=== PATIENT | male | born 1965 | race Caucasian/White ===

== ENCOUNTER 2016-06-24 12:57 | Emergency (ER) | payer OTHER ==
[~2016-06-24] VITALS: Ht 170.2 cm; Wt 87.0 kg
[~2016-06-24 12:57] MED LIST: AMLODIPINE BES2.5 MG PO; ASPIR 8181 M1 PO; ASPIRIN E.C.81 M1 PO; ASPIRIN EC325 MG PO; BENICAR40 MG PO; BUSPAR15 MG PO; CIALIS20 MG PO; CLARITIN,ALAVAR10 MG PO; CLONAZEPAM0.5 MG PO; CO Q-1010 MG PO; DEPAKOTE500 MG PO; DOCUSATE SODIU100 MG PO; ESGIC 50-325-41 EAC1 PO; FAMOTIDINE20 MG PO; HABITROL,NICODE21 MG TD; HEPARIN SO5000 UNITS SC; LORAZEPAM0.5 MG PO; METOPROLOL TART25 MG PO; NIASPAN,SLO-NI500 MG PO; NICOTINE PATCH1 EAC2 TD; NORVASC5 MG PO; PRAVASTATIN SOD40 MG PO; TYLENOL REGULA325 MG PO; Thiamine,Vitamin B1 PO
[2016-06-24 16:02] VITALS: BP 174/114
== END 2016-06-24 16:02 | disposition home or self-care (01) ==
LOC: EME 12:57
DX: S42.211A Unspecified displaced fracture of surgical neck of right humerus, initial encounter for closed fracture (principal); S80.11XA Contusion of right lower leg, initial encounter; S50.312A Abrasion of left elbow, initial encounter; W18.30XA Fall on same level, unspecified, initial encounter; Y92.000 Kitchen of unspecified non-institutional (private) residence as the place of occurrence of the external cause; I69.351 Hemiplegia and hemiparesis following cerebral infarction affecting right dominant side; F17.200 Nicotine dependence, unspecified, uncomplicated
CPT/HCPCS: 73030; 73060; 99281; 99284

== ENCOUNTER 2016-10-15 14:50 | Emergency (ER) | payer OTHER ==
[~2016-10-15] VITALS: Ht 170.2 cm; Wt 76.6 kg
[2016-10-15 17:32] VITALS: BP 132/96
== END 2016-10-15 17:50 | disposition home or self-care (01) ==
LOC: EME 14:50
DX: S50.11XA Contusion of right forearm, initial encounter (principal); S00.93XA Contusion of unspecified part of head, initial encounter; W18.30XA Fall on same level, unspecified, initial encounter; I10 Essential (primary) hypertension; E78.5 Hyperlipidemia, unspecified; I69.354 Hemiplegia and hemiparesis following cerebral infarction affecting left non-dominant side; F17.200 Nicotine dependence, unspecified, uncomplicated
CPT/HCPCS: 70450; 73090; 99281; 99284

== ENCOUNTER 2017-08-25 17:25 | Inpatient (IN) | payer BC ==
[~2017-08-25] VITALS: Ht 170.2 cm; Wt 52.3 kg
[2017-08-25 19:17] LABS: HEMATOCRIT 36.9 % (38.0-50.0); HEMOGLOBIN 13.7 G/DL (12.5-16.6); MCH 34.1 PG (29.0-34.0); MCHC 37.1 G/DL (30.0-36.0); MCV 91.8 FL (86-99); NRBC (%) 0.2 /100 WBC (0-0); PLATELET COUNT 252 K/uL (156-360); RBC DIS.WIDTH-CV 14.2 % (11.8-14.6); RBC DIS.WIDTH-SD 47.7 % (39-53); RED BLOOD COUNT 4.02 M/uL (4.00-5.50); WHITE BLOOD COUNT 8.2 K/uL (4.1-10.2)
[2017-08-25 19:26] LABS: ALBUMIN 2.8 g/dL (3.2-4.8); CHLORIDE 88 mEq/L (99-109); POTASSIUM 3.7 mEq/L (3.7-5.4); SODIUM 132 mEq/L (136-147)
[2017-08-25 19:27] LABS: MAGNESIUM 1.3 mg/dL (1.3-2.7)
[2017-08-25 19:29] LABS: GLUCOSE 67 mg/dL (70-99); TOTAL PROTEIN 7.3 g/dL (6.4-8.3)
[2017-08-25 19:30] LABS: INTER. NORMALIZED RATIO 1.1
[2017-08-25 19:31] LABS: TOTAL BILIRUBIN 2.2 mg/dL (0.0-1.0)
[2017-08-25 19:32] LABS: ALKALINE PHOSPHATASE 266 IU/L (3-129); SERUM ETHYL ALCOHOL 110 mg/dL
[2017-08-25 19:33] LABS: CREATININE 0.8 mg/dL (0.6-1.3); GFR ESTIMATE (CALCULATED) > 59 mL/min/ (58.99-99999)
[2017-08-25 19:34] LABS: AST (GOT) 136 IU/L (2-34); UREA NITROGEN (BUN) 4 mg/dL (9-23)
[2017-08-25 19:36] LABS: ALT (GPT) 65 IU/L (3-49); LIPASE 32 U/L (1.0-51.0)
[2017-08-25 20:10] LABS: FOLIC ACID (FOLATE) 8.4 NG/ML (5.0-22.0)
[2017-08-25 20:49] LABS: THYROTROPIN (TSH) 3.6 MIU/L (0.4-5.5)
[2017-08-25 21:57] LABS: APPEARANCE CLEAR ((CLEAR)); BILIRUBIN NEGATIVE; BLOOD NEGATIVE; COLOR YELLOW ((YELLOW)); GLUCOSE (STRIP) NEGATIVE; KETONES 5; LEUKOCYTES NEGATIVE; NITRITE NEGATIVE; PROTEIN (STRIP) NEGATIVE; SPECIFIC GRAVITY 1.005 (1.000-1.030); UCUL ADDED? NO
[2017-08-25 22:16] LABS: AMPHETAMINE NEGATIVE (500 ng/mL); BARBITURATES NEGATIVE (200 ng/mL); BENZODIAZEPINES NEGATIVE (150 ng/mL); BUPRENORPHINE NEGATIVE (10 ng/mL); COCAINE NEGATIVE (150 ng/mL); METHADONE NEGATIVE (200 ng/mL); METHAMPHETAMINE NEGATIVE (500 ng/mL); OPIATES (MORPHINE) NEGATIVE (100 ng/mL); OXYCODONE NEGATIVE (100 ng/mL); PHENCYCLIDINE NEGATIVE (25 ng/mL); PROPOXYPHENE NEGATIVE (300 ng/mL); THC CANNABINOIDS PRESUMPTIVE POSITIVE (50 ng/mL); TRICYCLIC ANTIDEPRESSANTS NEGATIVE (300 ng/mL)
[2017-08-25] MEDS ORDERED: AMLODIPINE BESYL5 MG PO (23:25)
[2017-08-25] MEDS ORDERED: BUSPAR15 MG PO (23:26)
[2017-08-25] MEDS ORDERED: CARVEDILOL6.25 MG PO (23:26)
[2017-08-25] MEDS ORDERED: DIVALPROEX SOD500 M1 PO (23:27)
[2017-08-25] MEDS ORDERED: ESCITALOPRAM OX20 MG PO (23:28)
[2017-08-25] MEDS ORDERED: ASPIRIN325 MG PO (23:29)
[2017-08-25] MEDS ORDERED: CO Q-10200 MG PO (23:30)
[2017-08-25] MEDS ORDERED: MULTI-VITAMIN1 EAC4 PO (23:31)
[2017-08-26 02:13] VITALS: BP 115/82
[2017-08-26 06:10] LABS: HEMATOCRIT 27.7 % (38.0-50.0); MCH 33.4 PG (29.0-34.0); MCHC 36.1 G/DL (30.0-36.0); MCV 92.6 FL (86-99); PLATELET COUNT 199 K/uL (156-360); RBC DIS.WIDTH-CV 14.3 % (11.8-14.6); RBC DIS.WIDTH-SD 48.1 % (39-53); WHITE BLOOD COUNT 7.4 K/uL (4.1-10.2)
[2017-08-26 06:18] LABS: RED BLOOD COUNT 2.99 M/uL (4.00-5.50)
[2017-08-26 06:21] LABS: ALBUMIN 1.8 G/DL (3.2-4.8); ALKALINE PHOSPHATASE 166 IU/L (3-129); ALT (GPT) 33 IU/L (3-49); AST (GOT) 72 IU/L (2-34); CHLORIDE 94 MEQ/L (99-109); CREATININE 0.5 MG/DL (0.6-1.3); GFR ESTIMATE (CALCULATED) > 59 mL/min/ (58.99-99999); GLUCOSE 76 mg/dL (70-99); SODIUM 133 MEQ/L (136-147); TOTAL BILIRUBIN 1.8 MG/DL (0.0-1.0); TOTAL PROTEIN 4.6 G/DL (6.4-8.3); UREA NITROGEN (BUN) 3 mg/dL (9-23)
[2017-08-26 08:14] VITALS: BP 113/86
[2017-08-26 08:18] LABS: VALPROIC ACID (DEPAKOTE) < 10.0 MCG/ML (50-100)
[2017-08-26 13:24] LABS: BASOPHIL (%) 0.7 % (0-1); BASOPHIL COUNT 0.1 K/uL (0-0.1); EOSINOPHIL (%) 0.6 % (0-5); HEMATOCRIT 29.3 % (38.0-50.0); HEMOGLOBIN 10.3 G/DL (12.5-16.6); IMMATURE GRANULOCYTE (%) 0.1 % (0.0-0.7); LYMPHOCYTE (%) 43.7 % (15-42); LYMPHOCYTE COUNT 3.1 K/uL (1.0-2.8); MCH 33.6 PG (29.0-34.0); MCHC 35.2 G/DL (30.0-36.0); MCV 95.4 FL (86-99); MONOCYTE (%) 7.1 % (3-12); MONOCYTE COUNT 0.5 K/uL (0-0.8); NEUTROPHIL (%) 47.8 % (45-76); NEUTROPHIL COUNT 3.4 K/uL (1.8-6.4); NRBC (%) 0.4 /100 WBC (0-0); PLATELET COUNT 186 K/uL (156-360); RBC DIS.WIDTH-CV 14.8 % (11.8-14.6); RBC DIS.WIDTH-SD 51.4 % (39-53); RED BLOOD COUNT 3.07 M/uL (4.00-5.50); WHITE BLOOD COUNT 7.1 K/uL (4.1-10.2)
[2017-08-26 14:38] LABS: CHLORIDE 97 MEQ/L (99-109); CREATININE 0.5 MG/DL (0.6-1.3); GFR ESTIMATE (CALCULATED) > 59 mL/min/ (58.99-99999); POTASSIUM 2.9 MEQ/L (3.7-5.4); SODIUM 135 MEQ/L (136-147); UREA NITROGEN (BUN) 3 mg/dL (9-23)
[2017-08-26 14:39] LABS: GLUCOSE 131 mg/dL (70-99)
[2017-08-26 15:46] VITALS: BP 118/68
[2017-08-27] VITALS: BP 119/82
[2017-08-27 05:55] LABS: HEMATOCRIT 30.5 % (38.0-50.0); HEMOGLOBIN 10.7 G/DL (12.5-16.6); MCH 33.5 PG (29.0-34.0); MCHC 35.1 G/DL (30.0-36.0); MCV 95.6 FL (86-99); NRBC (%) 0.3 /100 WBC (0-0); PLATELET COUNT 195 K/uL (156-360); RBC DIS.WIDTH-CV 14.8 % (11.8-14.6); RBC DIS.WIDTH-SD 51.9 % (39-53); RED BLOOD COUNT 3.19 M/uL (4.00-5.50); WHITE BLOOD COUNT 6.7 K/uL (4.1-10.2)
[2017-08-27 06:29] LABS: ALBUMIN 1.7 G/DL (3.2-4.8); ALKALINE PHOSPHATASE 158 IU/L (3-129); ALT (GPT) 34 IU/L (3-49); AST (GOT) 66 IU/L (2-34); CHLORIDE 103 MEQ/L (99-109); CREATININE < 0.2 MG/DL (0.6-1.3); GFR ESTIMATE (CALCULATED) > 59 mL/min/ (58.99-99999); GLUCOSE 103 mg/dL (70-99); POTASSIUM 3.4 MEQ/L (3.7-5.4); SODIUM 137 MEQ/L (136-147); TOTAL PROTEIN 4.5 G/DL (6.4-8.3); UREA NITROGEN (BUN) 2 mg/dL (9-23)
[2017-08-27 06:30] LABS: TOTAL BILIRUBIN 1.3 MG/DL (0.0-1.0)
[2017-08-27 07:57] VITALS: BP 134/87
[2017-08-27 15:38] VITALS: BP 115/84
[2017-08-27 23:58] VITALS: BP 126/85
[2017-08-28 03:34] VITALS: BP 110/63
[2017-08-28 06:41] LABS: CHLORIDE 105 MEQ/L (99-109); CREATININE 0.4 MG/DL (0.6-1.3); GFR ESTIMATE (CALCULATED) > 59 mL/min/ (58.99-99999); GLUCOSE 80 mg/dL (70-99); SODIUM 137 MEQ/L (136-147)
[2017-08-28 06:45] LABS: POTASSIUM 4.1 MEQ/L (3.7-5.4); UREA NITROGEN (BUN) < 2 mg/dL (9-23)
[2017-08-28 07:48] VITALS: BP 137/87
[2017-08-28 16:18] VITALS: BP 128/65
[2017-08-29] VITALS: BP 105/82
[2017-08-29 07:15] VITALS: BP 110/83
[2017-08-29 15:00] VITALS: BP 117/79
[2017-08-30] VITALS: BP 99/77
[2017-08-30 07:11] VITALS: BP 122/89
[2017-08-30 15:05] VITALS: BP 112/89
[2017-08-31 00:20] VITALS: BP 102/74
[2017-08-31 04:00] VITALS: BP 120/78
[2017-08-31 07:04] VITALS: BP 109/66
[2017-08-31 15:06] VITALS: BP 104/76
[2017-08-31 23:09] VITALS: BP 106/83
[2017-09-01 08:05] VITALS: BP 119/89
[2017-09-01 15:38] VITALS: BP 101/74
[2017-09-02 00:07] VITALS: BP 117/85
[2017-09-02 06:04] LABS: BASOPHIL (%) 0.4 % (0-1); EOSINOPHIL (%) 0.5 % (0-5); HEMATOCRIT 36.6 % (38.0-50.0); HEMOGLOBIN 12.5 G/DL (12.5-16.6); IMMATURE GRANULOCYTE (%) 0.4 % (0.0-0.7); LYMPHOCYTE (%) 46.1 % (15-42); LYMPHOCYTE COUNT 3.5 K/uL (1.0-2.8); MCH 33.3 PG (29.0-34.0); MCHC 34.2 G/DL (30.0-36.0); MCV 97.6 FL (86-99); MONOCYTE (%) 11.6 % (3-12); MONOCYTE COUNT 0.9 K/uL (0-0.8); NEUTROPHIL COUNT 3.2 K/uL (1.8-6.4); PLATELET COUNT 148 K/uL (156-360); RBC DIS.WIDTH-CV 16.2 % (11.8-14.6); RBC DIS.WIDTH-SD 57.4 % (39-53); RED BLOOD COUNT 3.75 M/uL (4.00-5.50); WHITE BLOOD COUNT 7.7 K/uL (4.1-10.2)
[2017-09-02 07:53] VITALS: BP 120/87
[2017-09-02 08:01] LABS: CHLORIDE 103 MEQ/L (99-109); CREATININE 0.6 MG/DL (0.6-1.3); GFR ESTIMATE (CALCULATED) > 59 mL/min/ (58.99-99999); GLUCOSE 75 mg/dL (70-99); POTASSIUM 3.4 MEQ/L (3.7-5.4); SODIUM 137 MEQ/L (136-147); UREA NITROGEN (BUN) 5 mg/dL (9-23)
[2017-09-02] MEDS ORDERED: ATORVASTATIN CA40 MG PO (08:18)
[2017-09-02] MEDS ORDERED: MEGACE20 MG PO (08:19)
[2017-09-02] MEDS ORDERED: FOLIC ACID1 MG PO (08:19)
[2017-09-02] MEDS ORDERED: BALANCE B-501 EAC1 PO (08:20)
[2017-09-02] MEDS ORDERED: THIAMINE HCL100 MG PO (08:20)
[2017-09-02] MEDS ORDERED: K-DUR10 MEQ PO (08:21)
[2017-09-02 15:10] VITALS: BP 105/75
== END 2017-09-02 17:01 | DRG 686 ==
LOC: EME 17:25 → 5SOUTH 08-26 00:15 → EDOF 08-26 00:15 → ENRESERV 08-26 00:17 → 5SOUTH 08-26 01:46
PROVIDERS: Internal Medicine; Physician Assistant; Physician Assistant Medical
DX: C64.2 Malignant neoplasm of left kidney, except renal pelvis (principal); E43 Unspecified severe protein-calorie malnutrition; R64 Cachexia; F10.20 Alcohol dependence, uncomplicated; E87.1 Hypo-osmolality and hyponatremia; J44.9 Chronic obstructive pulmonary disease, unspecified; I69.391 Dysphagia following cerebral infarction; I69.351 Hemiplegia and hemiparesis following cerebral infarction affecting right dominant side; Z68.1 Body mass index [BMI] 19.9 or less, adult; I69.398 Other sequelae of cerebral infarction; R13.10 Dysphagia, unspecified; M25.50 Pain in unspecified joint; I10 Essential (primary) hypertension; I69.320 Aphasia following cerebral infarction; F17.210 Nicotine dependence, cigarettes, uncomplicated; F32.9 Major depressive disorder, single episode, unspecified; G40.909 Epilepsy, unspecified, not intractable, without status epilepticus; R31.0 Gross hematuria; K70.0 Alcoholic fatty liver; E78.5 Hyperlipidemia, unspecified; E83.51 Hypocalcemia; E87.6 Hypokalemia; F03.90 Unspecified dementia, unspecified severity, without behavioral disturbance, psychotic disturbance, mood disturbance, and anxiety; D64.9 Anemia, unspecified; F41.9 Anxiety disorder, unspecified; R62.7 Adult failure to thrive
CPT/HCPCS: 70450; 70553; 71260; 74177; 80048; 80048 91; 80053; 80164; 81003; 82140; 82272; 82607; 82746; 83690; 83735; 84443; 84999; 85025; 85027; 85610; 92610 GN; 97530 GO; 97530 GP; 99281; 99285; G0480; J1644; J3411; J3475; J7030